=== PATIENT | female | born 1990 | race Caucasian/White ===

== ENCOUNTER 2017-06-15 23:04 | Emergency (ER) | payer BC, MEDICAID ==
[2017-06-15] MEDS ORDERED: NS 1,000 ML IV ONE (23:45)
--- NOTE | 2017-06-15 23:55 | EDPHY ---
H & P Stated Complaint: dx w/ pyelonephritis 2 days ago, c/o ongoing L flank pain/ chills Time Seen by Provider: 06/15/17 23:55 HPI/ROS: HPI CHIEF COMPLAINT: Nausea, left flank pain, recent UTI HISTORY OF PRESENT ILLNESS: Patient 26-year-old female she presents emergency room with nausea, dysuria, left flank pain. She states that she was recently diagnosed on Thursday with urinary tract infection at urgent care. She has been taking azo as well as nitro fever tone. She states tonight she felt nauseous felt like she was going to vomit had some chills and ongoing left flank pain. Became concerned decided come the emergency room. Denies any active vomiting. Denies fever. Denies chest pain or shortness of breath. Denies abdominal pain. Pain is 3/10 left flank. Past Medical History: UTI Past Surgical History: [place] tooth removal Social History: Denies daily use drugs alcohol tobacco. Family History: Noncontributory ROS REVIEW OF SYSTEMS: A comprehensive 10 point review of systems is otherwise negative aside from elements mentioned in the history of present illness. Exam Constitutional appears well nontoxic no acute distress triage nursing summary reviewed, vital signs reviewed, awake/alert. Eyes normal conjunctivae and sclera, EOMI, PERRLA. HENT normal inspection, atraumatic, moist mucus membranes, no epistaxis, neck supple/ no meningismus, no raccoon eyes. Respiratory clear to auscultation bilaterally, normal breath sounds, no respiratory distress, no wheezing. Cardiovascular rate normal, regular rhythm, no murmur, no edema, distal pulses normal. Gastrointestinal soft, non-tender, no rebound, no guarding, normal bowel sounds, no distension, no pulsatile mass. Genitourinary mild tender palpation left CVA Musculoskeletal no midline vertebral tenderness, full range of motion, no calf swelling, no tenderness of extremities, no meningismus, good pulses, neurovascularly intact. Skin pink, warm, & dry, no rash, skin atraumatic. Neurologic awake, alert and oriented x 3, AAOx3, moves all 4 extremities equally, motor intact, sensory intact, CN II-XII intact, normal cerebellar, normal vision, normal speech. Psychiatric normal mood/affect. Heme/Lymph/Immune no lymphadenopathy. Differential Diagnosis: Includes but is not limited to in a particular order UTI, cystitis, pyelonephritis, kidney stone Medical Decision Making: Plan for this patient IV establishment blood draw, IV fluids, 4 mg IV Zofran nausea, 15 mg IV Toradol for pain control. Check UA. Check test. Check basic blood work. Re-evaluate. Re-evaluation: 0335: Patient re-evaluated this time she is resting comfortably. Pain is resolved she is not vomiting. Vital signs are stable. Blood work has been reviewed as well as urinalysis no evidence of active infection. I do encourage her to continue to take her antibiotic. Additionally return precautions discussed with her she understands return emergency room she develops worsening abdominal pain flank pain fever vomiting. Blood work reviewed, urinalysis reviewed. Will give her prescription for nausea medicine anti-inflammatory pain medicine. Return precautions discussed she is comfortable this plan. Source: Patient - Medical/Surgical History Hx Asthma: No Hx Chronic Respiratory Disease: No Hx Diabetes: No Hx Cardiac Disease: No Hx Renal Disease: No Hx Cirrhosis: No Hx Alcoholism: No Hx HIV/AIDS: No Hx Splenectomy or Spleen Trauma: No Other PMH: denies - Social History Smoking Status: Never smoked Constitutional: Initial Vital Signs Temperature (C) 37.1 C 06/15/17 23:09 Heart Rate 78 06/15/17 23:09 Respiratory Rate 16 06/15/17 23:09 Blood Pressure 118/72 06/15/17 23:09 O2 Sat (%) 99 06/15/17 23:09 O2 Delivery Mode Room Air Allergies/Adverse Reactions: Sulfa (Sulfonamide Antibiotics) Allergy (Verified 06/15/17 23:14) Home Medications: Medication Instructions Recorded Macrobid 06/15/17 Paracetamol 06/15/17 Phenazopyridine HCl 06/15/17 Ibuprofen [Motrin (*)] 800 mg PO Q6-8PRN #10 tab 06/16/17 Ondansetron HCl [Zofran] 4 mg PO Q4-6PRN PRN #10 tablet 06/16/17 Medical Decision Making - Data Points Laboratory Results: Laboratory Results 06/15/17 23:59 06/15/17 23:59 06/16/17 06/15/17 06/15/17 01:40 23:59 23:59 WBC RBC Hgb Hct MCV MCH MCHC RDW Plt Count MPV Neut % (Auto) Lymph % (Auto) [place] % (Auto) Eos % (Auto) Baso % (Auto) Nucleat RBC Rel Count Absolute Neuts (auto) Absolute Lymphs (auto) Absolute Monos (auto) Absolute Eos (auto) Absolute Basos (auto) Absolute Nucleated RBC Immature Gran % Immature Gran # VBG Lactic Acid 0.8 mmol/L mmol/L (0.7-2.1) Sodium 140 mEq/L mEq/L (135-145) Potassium 3.8 mEq/L mEq/L (3.5-5.2) Chloride 104 mEq/L mEq/L (97-110) Carbon Dioxide 23 mEq/l mEq/l (22-31) Anion Gap 13 mEq/L mEq/L (8-16) BUN 7 mg/dL mg/dL (7-23) Creatinine 0.6 mg/dL mg/dL (0.6-1.0) Estimated GFR > 60 Glucose 104 mg/dL H mg/dL (70-100) Calcium 8.8 mg/dL mg/dL (8.5-10.4) Total Bilirubin 1.0 mg/dL mg/dL (0.1-1.4) Conjugated Bilirubin 0.5 mg/dL mg/dL (0.0-0.5) Unconjugated Bilirubin 0.5 mg/dL mg/dL (0.0-1.1) AST 15 IU/L IU/L (14-46) ALT 28 IU/L IU/L (9-52) Alkaline Phosphatase 49 IU/L IU/L (38-126) Total Protein 6.5 g/dL g/dL (6.3-8.2) Albumin 4.1 g/dL g/dL (3.5-5.0) Lipase 129 IU/L IU/L (23-300) Beta HCG, Qual NEGATIVE Urine Color Urine Appearance Urine pH Ur Specific [place] Urine Protein Urine Ketones Urine Blood Urine Nitrate Urine Bilirubin Urine Urobilinogen Ur Leukocyte Esterase Urine Glucose 06/15/17 06/15/17 23:59 23:45 WBC 9.55 10^3/uL H 10^3/uL (3.80-9.50) RBC 4.08 10^6/uL L 10^6/uL (4.18-5.33) Hgb 13.7 g/dL g/dL (12.6-16.3) Hct 39.4 % % (38.0-47.0) MCV 96.6 fL fL (81.5-99.8) MCH 33.6 pg pg (27.9-34.1) MCHC 34.8 g/dL g/dL (32.4-36.7) RDW 11.9 % % (11.5-15.2) Plt Count 197 10^3/uL 10^3/uL (150-400) MPV 8.9 fL fL (8.7-11.7) Neut % (Auto) 80.6 % H % (39.3-74.2) Lymph % (Auto) 9.0 % L % (15.0-45.0) [place] % (Auto) 9.1 % % (4.5-13.0) Eos % (Auto) 0.5 % L % (0.6-7.6) Baso % (Auto) 0.3 % % (0.3-1.7) Nucleat RBC Rel Count 0.0 % % (0.0-0.2) Absolute Neuts (auto) 7.69 10^3/uL H 10^3/uL (1.70-6.50) Absolute Lymphs (auto) 0.86 10^3/uL L 10^3/uL (1.00-3.00) Absolute Monos (auto) 0.87 10^3/uL H 10^3/uL (0.30-0.80) Absolute Eos (auto) 0.05 10^3/uL 10^3/uL (0.03-0.40) Absolute Basos (auto) 0.03 10^3/uL 10^3/uL (0.02-0.10) Absolute Nucleated RBC 0.00 10^3/uL 10^3/uL (0-0.01) Immature Gran % 0.5 % % (0.0-1.1) Immature Gran # 0.05 10^3/uL 10^3/uL (0.00-0.10) VBG Lactic Acid Sodium Potassium Chloride Carbon Dioxide Anion Gap BUN Creatinine Estimated GFR Glucose Calcium Total Bilirubin Conjugated Bilirubin Unconjugated Bilirubin AST ALT Alkaline Phosphatase Total Protein Albumin Lipase Beta HCG, Qual Urine Color PALE YELLOW Urine Appearance CLEAR Urine pH 7.0 (5.0-7.5) Ur Specific [place] 1.001 L (1.002-1.030) Urine Protein NEGATIVE (NEGATIVE) Urine Ketones NEGATIVE (NEGATIVE) Urine Blood NEGATIVE (NEGATIVE) Urine Nitrate NEGATIVE (NEGATIVE) Urine Bilirubin NEGATIVE (NEGATIVE) Urine Urobilinogen NEGATIVE EU EU (0.2-1.0) Ur Leukocyte Esterase NEGATIVE (NEGATIVE) Urine Glucose NEGATIVE (NEGATIVE) Medications Given: Discontinued Medications Sodium Chloride (Ns) 1,000 mls @ 0 mls/hr IV EDNOW ONE; Wide Open PRN Reason: Protocol Stop: 06/15/17 23:46 Last Admin: 06/16/17 00:10 Dose: 1,000 mls Ketorolac Tromethamine (Toradol) 15 mg IVP EDNOW ONE Stop: 06/16/17 00:00 Last Admin: 06/16/17 00:11 Dose: 15 mg Ondansetron HCl (Zofran) 4 mg IVP EDNOW ONE Stop: 06/16/17 00:00 Last Admin: 06/16/17 00:11 Dose: 4 mg Promethazine HCl (Phenergan) 6.25 mg IVP ONCE ONE Stop: 06/16/17 03:04 Last Admin: 06/16/17 03:12 Dose: 6.25 mg Departure - Departure Disposition: Home, Routine, Self-Care Clinical Impression: Flank pain Condition: Good Instructions: Flank Pain (ED) Additional Instructions: 1. Continue your antibiotics. 2. Recommend Motrin for mild pain. 3. Return emergency room if develops worsening pain fever vomiting or not feeling well. 4. Nausea medicine as needed. Referrals: NONE *PRIMARY CARE P,. [Primary Care Provider] - As per Instructions Prescriptions: Ibuprofen [Motrin (*)] 800 mg PO Q6-8PRN #10 tab Ondansetron HCl [Zofran] 4 mg PO Q4-6PRN PRN #10 tablet PRN Reason: Nausea/Vomiting, Use 1st
[2017-06-15] MEDS ORDERED: KETOROLAC 15 MG/1 ML SDV IVP ONE (23:59)
[2017-06-15] MEDS ORDERED: ONDANSETRON 4 MG/2 ML VIAL IVP ONE (23:59)
[2017-06-16 00:54] LABS: PLATELET COUNT 197 10^3/uL (150-400)
[2017-06-16] MEDS ORDERED: PROMETHAZINE HCL 25 MG/ML INJ IVP ONE (03:03)
[2017-06-16 03:14] VITALS: BP 110/65
== END 2017-06-16 03:45 | disposition home or self-care (01) ==
DX: R10.9 Unspecified abdominal pain (principal); E86.9 Volume depletion, unspecified
CPT/HCPCS: 96374; J1885; J2405; J2550

== ENCOUNTER → 2017-11-26 | Outpatient (CLI) | payer MEDICAID | LOC: BMCIMAGING 12:51 | PROVIDERS: ATTEND Nurse Practitioner Women's Health | DX: Z30.431 Encounter for routine checking of intrauterine contraceptive device (principal); T83.32XA Displacement of intrauterine contraceptive device, initial encounter ==